=== PATIENT | male | born 1935 | race Two or more races ===

== ENCOUNTER 2024-01-06 14:11 | Emergency (ER) | payer MEDICARE, MEDICAID, SELFPAY ==
[2024-01-06 14:22] VITALS: BP 169/73; PULSE 62; RESP 16; TEMP 36.4; O2SAT 99
--- NOTE | 2024-01-06 14:30 | ED.SKABFB ---
HPI - Skin/Abscess/Foreign Bdy General Chief complaint: Extremity Problem,Nontraumatic Stated complaint: BRUISES ON FEET/DIABETIC Time Seen by Provider: 01/06/24 14:30 Source: patient Mode of arrival: ambulatory Limitations: no limitations History of Present Illness HPI narrative: 88-year-old male with history of diabetes presents with his with complaint of open wound to left. Unsure how he injured himself. thinks patient has new shoes were wrapping and cause blisters. Unsure how long open wounds have been present. 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 Patient here visiting his son, son noticed dried blood on left foot. Patient's concerned patient may get an infection. Ambulatory with steady gait. All systems reviewed and negative except as noted above. Related Data Home Medications Medication Instructions Recorded Confirmed insulin glargine 100 unit/mL (3 40 unit subcut AC 01/06/24 01/06/24 mL) subcutaneous pen (Lantus Solostar U-100 Insulin) levothyroxine 25 mcg tablet 25 mcg PO DAILY 01/06/24 01/06/24 midodrine 5 mg tablet 5 mg PO BID 01/06/24 01/06/24 Allergies Allergy/AdvReac Type Severity Reaction Status Date / Time No Known Allergies Allergy Verified 01/06/24 14:30 Review of Systems Review of Systems: CONSTITUTIONAL: Denies fever, chills, or sweats. EYES: Denies visual changes, redness, or discharge. ENT: Denies rhinorrhea, congestion, sore throat, or otalgia. CARDIOVASCULAR: Denies chest pain, palpitations, or edema. RESPIRATORY: Denies cough or dyspnea. GASTROINTESTINAL: Denies abdominal pain, nausea, vomiting, or diarrhea. GENITOURINARY: Denies dysuria or hematuria. SKIN: Denies rash or itching. Reports 2 open wounds to left foot. MUSCULOSKELETAL: Denies back pain, joint pain, or myalgia. NEUROLOGIC: Denies headache, numbness, or weakness. PSYCHIATRIC: Denies anxiety or depression. All other systems reviewed are negative, except as documented in HPI. Exam Narrative: At time of signature, agree with nursing past medical, surgical, social and family history. There is no relevant family history pertinent to the presenting complaint. Const: Other: GENERAL: This is a well-nourished, well-developed patient, in no apparent distress. HEAD: normocephalic, atraumatic. EYES: PERRL. Sclera clear/white. Vision is grossly intact. EARS: External ears normal NOSE: External nose normal NECK: Neck supple, non-tender without lymphadenopathy, masses or thyromegaly. CARDIOVASCULAR: Regular rate and rhythm without murmurs, gallops, or rubs. RESPIRATORY: Clear to auscultation. Breath sounds equal bilaterally. No wheezes, rales, or rhonchi. SKIN: warm, Dry, intact with no suspicious lesions or rash, good texture and turgor. To open, superficial wound to lateral aspect of left foot with dry blood, no active bleeding. No signs of infection. NEURO: awake, alert, and oriented to person, place and time. There were no obvious focal neurologic abnormalities. EXTREMITIES: No joint tenderness, effusion, or edema noted. Course Course Level of Care: Express Care Visit Vital Signs Vital signs: Vital Signs Temperature 36.4 C L 01/06/24 14:22 Pulse Rate 62 01/06/24 14:22 Respiratory Rate 16 01/06/24 14:22 Blood Pressure 169/73 H 01/06/24 14:22 Pulse Oximetry 99 01/06/24 14:22 Temperature 36.4 C L 01/06/24 14:22 Pulse Rate 62 01/06/24 14:22 Respiratory Rate 16 01/06/24 14:22 Blood Pressure 169/73 H 01/06/24 14:22 Pulse Oximetry 99 01/06/24 14:22 Oxygen Delivery Room Air 01/06/24 14:25 Reviewed MDM - Skin/Abscess/Foreign Bdy MDM Narrative Medical decision making narrative: Will prescribe cephalexin today as preventative for infection due to patient's history of diabetes. There are no signs of infection today. Wounds cleaned and dressed by RN. Patient is aware of diagnosis, understands and agrees to treatment plan. Anticipa
== END 2024-01-06 14:50 | disposition home or self-care (01) ==
PROVIDERS: Emergency Provider Nurse Practitioner Family
DX: S91.302A Unspecified open wound, left foot, initial encounter (principal); X58.XXXA Exposure to other specified factors, initial encounter; E11.42 Type 2 diabetes mellitus with diabetic polyneuropathy; E03.9 Hypothyroidism, unspecified; Z95.5 Presence of coronary angioplasty implant and graft
CPT/HCPCS: 99213; G0463

== ENCOUNTER 2024-02-24 09:42 | Observation (INO) | payer MEDICARE, MEDICAID, SELFPAY ==
[2024-02-24] VITALS (7 sets, daily range): BP systolic 117–155; BP diastolic 47–89; PULSE 57–69; RESP 13–19; TEMP 36.3–36.6; O2SAT 96–100
--- NOTE | ~2024-02-24 | CT_ITS ---
EXAMINATION: CT thoracic lumbar wo con DATE: 02/24/2024 12:42 INDICATION: Fall. TECHNIQUE: Computed tomography (CT) of the thoracic and lumbar spine was performed without intravenou s contrast. Automated exposure control and iterative reconstruction technique were employed. The dose -length product was 944.00 mGy-cm. COMPARISON: None FINDINGS: CT THORACIC SPINE: There is 10 degrees dextroscoliosis of thoracic spine. Vertebral body heights are normal. There is mildly decreased disc height at multiple levels. There is multilevel mild facet join t osteoarthritis in the thoracic spine. There is mild neural foraminal stenosis at [address] levels[address] No centr al canal stenosis. CT LUMBAR SPINE: Bone alignment is normal. There is a compression fracture of L3 with 2/5 loss of hei ght and a coronal cleft. There is mildly decreased disc height at L2-L3, L3-L4, and L4-L5 and severel y decreased disc height at L5-S1. The following disc levels are specifically discussed: L1-L2: The disc does not extend beyond the endplate margin. There is mild bilateral facet joint osteo arthritis. There is no neural foraminal stenosis. There is no central canal stenosis. L2-L3: The disc is bulging. There is moderate right and severe left facet joint osteoarthritis. There is mild bilateral neural foraminal stenosis. There is mild central canal stenosis. L3-L4: The disc is bulging. There is severe bilateral facet joint osteoarthritis. There is mild bilat eral neural foraminal stenosis. There is mild central canal stenosis. L4-L5: The disc is bulging. There is severe bilateral facet joint osteoarthritis. There is moderate b ilateral neural foraminal stenosis. There is mild central canal stenosis. L5-S1: The disc is bulging. There is severe bilateral facet joint osteoarthritis. There is moderate b ilateral neural foraminal stenosis. There is mild central canal stenosis. IMPRESSION: 1. Acute L3 compression fracture. 2. Mild thoracic spondylosis and severe lower lumbar spondylosis. Reviewed, dictated and finalized at location A.
--- NOTE | ~2024-02-24 | XR_ITS ---
EXAMINATION: XR chest 2V DATE: 02/24/2024 10:51 INDICATION: Weakness. TECHNIQUE: Frontal and lateral views of the chest were obtained. COMPARISON: None. FINDINGS: There is mild atelectasis in left lower lobe. No pleural effusion or pneumothorax. The hear t size is normal. Median sternotomy wires and mediastinal surgical clips are seen, likely from prior coronary artery bypass grafting. There is a chronic compression fracture of L3. IMPRESSION: 1. Mild atelectasis in left lower lobe. Reviewed, dictated and finalized at location A.
--- NOTE | ~2024-02-24 | CT_ITS ---
EXAMINATION: CT brain wo con DATE: 02/24/2024 12:42 INDICATION: Falls with related to right head and weakness TECHNIQUE: Computed tomography (CT) of the head was performed without intravenous contrast. Sagittal and coronal reconstructions were performed. The mA was adjusted according to patient size. Iterative reconstruction technique was employed. The dose-length product was 605.33 mGy-cm. COMPARISON: None FINDINGS: No fracture. No acute intracranial hemorrhage, acute infarction or abnormal extra axial fluid collect ion. Couple small lacunar infarcts in the left basal ganglia and right thalamus. There is mild to mod erate scattered white matter hypoattenuation consistent with chronic small vessel ischemic disease. S ymmetric prominence of the sulci and ventricles consistent with moderate age-appropriate diffuse cere bral volume loss. No mass/mass effect. Changes of bilateral intraocular lens replacement. Mucosal thi ckening and partial opacification of the right maxillary sinus. Mastoid air cells and middle ear cavi ties are clear. Intracranial calcified cerebral atherosclerosis is noted. IMPRESSION: 1. No fracture or acute intracranial process. 2. 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 3. Age-related changes including moderate diffuse volume loss and mild to moderate scattered white ma tter hypoattenuation consistent with chronic small vessel ischemic disease. Reviewed, dictated and finalized at location B. IMPRESSION: 1. No fracture or acute intracranial process. 2. 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 3. Age-related changes including moderate diffuse volume loss and mild to moder ate scattered white matter hypoattenuation consistent with chronic small vessel ischemic disease.
--- NOTE | 2024-02-24 09:51 | ECG_ITS ---
Test Date: 2024-02-24 09:53:26 Measurements Intervals [place] Rate: 57 P: 86 HI: 173 QRS: 86 QRSD: 126 T: 24 QT: 443 QTc: 433 Interpretive Statements SINUS BRADYCARDIA WITH SINUS ARRHYTHMIA RIGHT BUNDLE BRANCH BLOCK INFERIOR MYOCARDIAL INFARCTION , PROBABLY OLD ABNORMAL ECG No previous ECG available for comparison Electronically Signed On 02-24-2024 10:47:00 CDT by Valentin Bates D.O.
[2024-02-24 10:49] LABS: Basophils Absolute Auto 0.1 K/mm3 (0.0-0.1); Basophils Percent Auto 0.6 % (0.2-1.2); Eosinophils Absolute Auto 0.3 K/mm3 (0-0.3); Eosinophils Percent Auto 3.5 % (0-4.4); Hematocrit 42.8 % (42.0-52.0); Hemoglobin 14.3 g/dL (14.0-18.0); Immature Granulocyte Absolute 0.05 K/mm3 (0.00-0.031); Immature Granulocyte Percent A 0.5 % (0-0.5); Lymphocytes Absolute Auto 2.87 K/mm3 (0.9-3.2); Lymphocytes Percent Auto 29.6 % (18.3-44.2); Mean Corpuscular HGB Conc 33.4 g/dl (32-36); Mean Corpuscular Hemoglobin 30.4 pg (26-34); Mean Corpuscular Volume 90.9 fl (80-100); Monocytes Percent Auto 10.4 % (2.6-8.5); Neutrophils Absolute Auto 5.4 K/mm3 (1.3-6.7); Neutrophils Percent Auto 55.4 % (45.5-73.1); Platelet Count Result 260 k/mm3 (150-375); Red Blood Count 4.71 M/mm3 (4.6-6.20); White Blood Count 9.7 K/mm3 (4.5-10.0)
[2024-02-24 11:00] LABS: Alanine Aminotransferase 20 U/L (6-50); Alkaline Phosphatase 81 U/L (38-126); Anion Gap 6 mmol/L (4-12); Aspartate Amino Transferase 24 U/L (17-59); Bilirubin,Total 0.4 mg/dL (0.2-1.3); Blood Urea Nitrogen 27 mg/dL (9-20); Calcium 8.6 mg/dL (8.4-10.2); Carbon Dioxide 28 mmol/L (22-30); Chloride 104 mmol/L (98-107); Estimated CRCL calculation 24 ml/min; Estimated Glomerular Filt Rate 44; Glucose 90 mg/dL (65-110); Potassium 4.5 mmol/L (3.4-5.0); Sodium 138 mmol/L (137-145)
--- NOTE | 2024-02-24 13:01 | ED.GENADULT ---
HPI - General Adult General Chief complaint: Weakness Stated complaint: frequent falls, weakness Time Seen by Provider: 02/24/24 12:04 History of Present Illness HPI narrative: Patient is an 89-year-old male who presents to the emergency department this afternoon accompanied by his ex- due to concern for generalized weakness and recurrent falls. states that the patient's symptoms have been getting over this for the past 6 weeks. states that they had blood work including thyroid studies and vitamins and he was placed on some thyroid hormone problem that the remainder of his blood work was fine. They attributed his weakness to his peripheral neuropathy from diabetes and recommended daily physical therapy. Patient was then placed in a long term [place] a different city approximately [address] as family alternate between here and living in a different city and states that he was released from the long term last Thursday but she feels as though he is now worse than he was when he was placed in the long term. Throughout this past week she has had a very difficult time caring for him. Patient is having a difficult time ambulating from the room to the bathroom. Once he gets to the bathroom to urinate he often misses in gets urine all over the bathroom. is now requesting that he is placed in a long-term long term facility is that she no longer can care for him. She was hoping that the 1 month at the long term with rehab / physical therapy daily would improve his condition, however, she feels as though his condition only due to your noted. She denies any additional specific symptoms or concerns. Patient is alert and oriented to person, place and situation and is answering all my questions appropriately. states that he really did not like the long term but understands that he needs a. Patient is complaining of lumbar back pain and did inform me at this time that he did fall about a week ago but was not evaluated for this. Related Data Home Medications Medication Instructions Recorded Confirmed insulin glargine 100 unit/mL (3 40 unit subcut AC 01/06/24 01/06/24 mL) subcutaneous pen (Lantus Solostar U-100 Insulin) levothyroxine 25 mcg tablet 25 mcg PO DAILY 01/06/24 01/06/24 midodrine 5 mg tablet 5 mg PO BID 01/06/24 01/06/24 Allergies Allergy/AdvReac Type Severity Reaction Status Date / Time No Known Allergies Allergy Verified 02/24/24 09:54 Review of Systems Review of Systems: All systems are reviewed and are negative unless stated otherwise in the HPI. Exam Narrative: General: Alert, awake, afebrile, in no acute distress. HEENT: PERRL, no rhinorrhea, no post nasal drip, oropharynx clear. Cardiovascular: Regular rate and rhythm, no murmurs, rubs or gallops, no peripheral edema. Respiratory: Clear to auscultation bilaterally, no tachypnea, no wheezing, no rhonchi, no rubs, no respiratory distress. Abdomen: Soft, nontender, nondistended, no rebound, no guarding, no peritoneal signs. Back: Midline lumbar spine tenderness to palpation, no step-offs or deformities. Musculoskeletal: No joint swelling or deformity, normal muscle tone. Skin: No rashes or petechia, no signs of infection. Neurological: Alert and oriented to person, place, and time. Follows all commands. No focal deficits, spontaneously moving all 4 extremity, speech is clear and fluent. Course Vital Signs Vital signs: Vital Signs Temperature 97.9 F 02/24/24 09:39 Pulse Rate 61 02/24/24 09:39 Respiratory Rate 15 02/24/24 09:39 Blood Pressure 144/85 H 02/24/24 09:39 Pulse Oximetry 100 02/24/24 09:39 Oxygen Delivery Room Air 02/24/24 09:39 Temperature 97.9 F 02/24/24 09:39 Pulse Rate 61 02/24/24 12:16 Respiratory Rate 14 02/24/24 12:16 Blood Pressure 128/80 02/24/24 12:16 Pulse Oximetry 96 02/24/24 12:16 Oxygen Delivery Room Air 02/24/24 09:39 Medical Dec
[2024-02-24 13:29] LABS: Appearance Urine Clear (Clear); Bacteria Urine None Seen /hpf; Bilirubin Urine Negative (Negative); Blood Urine Negative (Negative); Color Urine Yellow (Yellow); Glucose Urine UA Negative (Negative); Ketones Urine Negative (Negative); Leukocyte Esterase Ur Negative LEU/UL (Negative); Need Manual Microscopic Reviewed; Nitrate Urine Negative (Negative); Non Pathogenic Casts 0-2; Protein Urine Trace mg/dL (Negative); RBC Urine 0-2 /hpf (0-2); Specific Grav Ur 1.019 (1.001-1.035); Squamous Epithelial Cell Urine None Seen /hpf (Few); Urobilinogen Urine 0.2 mg/dL (<2.0); WBC Urine 0-5 /hpf (0-3); pH Urine 5.5 (5.0-9.0)
[2024-02-24 13:39] LABS: Add Urine Microscopic? NO
--- NOTE | 2024-02-24 15:25 | PC.NURSE ---
This RN called dietary and requested a dinner tray be sent to pts room 344, aware of no red meat diet per pt request.
--- NOTE | 2024-02-24 15:30 | ADMGEN ---
This patient, Yao Hidalgo, was admitted to Medical Room 344-01. Patient/family oriented to hospital policies and general routines including ID bracelet, bed and alarms, visiting hours, pain management, procedures, bathroom and other care routines, personal items, smoking policy, room service/diet, and visiting hours. Information on how to activate the Rapid Response Team has been discussed. Patient/Family are encouraged to report perceived risks to care and to ask questions if they do not understand what they are told or what they should do.
--- NOTE | 2024-02-24 16:01 | PM.IMHP ---
H&P: HPI History of Present Illness Date/Time: 02/24/24 16:01 Chief Complaint: Falls/failure to thrive Narrative: Patient is a an 89-year old male who presented initially to the ED with his ex- for frequent falls and weakness at home. The patient currently lives with his ex- and son who have been caring for him after he recently was discharged from rehab. Most information was from the medical chart and ex- because patient is poor historian. The ex- had reported to ED staff that patient weakness and falls have been getting increasingly worse for the last 6 weeks and she can longer care for him at home. Ex- reported the patient can hardly ambulate to the bathroom anymore and has been urinating on himself and the floor. Patient did have some complaints of back pain and ED physician was informed of a previous fall about a week ago that they did not seek care for. The patients labs and vitals were unremarkable, however CT spine did show an acute L3 compression fracture. Patient was admitted to the medical services for fpc placement with PT/OT and neurosurgery consult for L3 fracture. Review of Systems Review of Systems: All systems reviewed & are unremarkable except as noted in HPI and below PMFSH Social History Social History Smoking status: Never smoker Alcohol intake: never Substance use: never Do You Feel Safe in your Home?: Yes Lack of Transportation: No Lack of Food: Never True Current Housing: I Have Housing Concerned About Future Housing: No Difficulty Paying Gas/Electric Bills: No Difficulty Paying for Meds: No Currently Unemployed: No Education: Associate Degree Difficulty w/ Childcare or Family Care: No Spiritual care concerns: No Meds Home Medications and Allergies Home Medications Medication Instructions Recorded Confirmed Type insulin glargine 100 unit/mL (3 25 unit subcut HS 01/06/24 02/24/24 History mL) subcutaneous pen (Lantus Solostar U-100 Insulin) levothyroxine 25 mcg tablet 25 mcg PO DAILY 01/06/24 02/24/24 History midodrine 5 mg tablet 5 mg PO BID 01/06/24 02/24/24 History aspirin 325 mg tablet 325 mg PO DAILY 02/24/24 02/24/24 History iodine (kelp) 1 tablet PO DAILY 02/24/24 02/24/24 History multivit with minerals-iron 18 1 tablet PO DAILY 02/24/24 02/24/24 History mg-folic ac 400 mcg-vit K 25 mcg tablet (Adults Multivitamin) omega 9-seg-kss-fish oil 1,000 mg 2 cap PO DAILY 02/24/24 02/24/24 History (120 mg-180 mg) capsule (Fish Oil) Allergies Allergy/AdvReac Type Severity Reaction Status Date / Time No Known Allergies Allergy Verified 02/24/24 16:53 Vital Signs Vital Signs - 24 hr 02/24/24 09:39 02/24/24 09:51 02/24/24 10:56 Temperature 97.9 F Pulse Rate 61 57 L 59 L Respiratory Rate 15 13 Blood Pressure 144/85 H 155/83 H Pulse Oximetry 100 97 Oxygen Delivery Room Air 02/24/24 12:16 02/24/24 14:40 02/24/24 15:44 Temperature 97.7 F Pulse Rate 61 63 60 Respiratory Rate 14 14 19 Blood Pressure 128/80 150/89 H 123/60 Pulse Oximetry 96 100 100 Oxygen Delivery Exam Narrative: Physical Exam: GENERAL: Alert and oriented x 3. No acute distress. EYES: EOMI. No scleral icterus. PERRLA. HEENT: Moist mucous membranes. LUNGS: Clear to auscultation bilaterally. No accessory muscle use. CARDIOVASCULAR: Regular rate and rhythm. No murmur. No JVD. S1-S2 ABDOMEN: Soft, mild tenderness and non-distended. No palpable masses. EXTREMITIES: No edema. Non-tender SKIN: No rashes or lesions. Skin warm, dry. NEUROLOGIC: No focal neurological deficits. CN II-XII grossly intact PSYCHIATRIC: Appropriate mood and affect. Good judgement and insight. No visual or auditory hallucinations. No suicidal or homicidal ideation. H&P: Results Labs Labs: Short CBC 02/24/24 Range/Units 10:44 WBC 9.7 (4.5-10.0) K/m
[2024-02-25 05:22] LABS: Hematocrit 43.1 % (42.0-52.0); Hemoglobin 13.7 g/dL (14.0-18.0); Mean Corpuscular HGB Conc 31.8 g/dl (32-36); Mean Corpuscular Hemoglobin 30.1 pg (26-34); Mean Corpuscular Volume 94.7 fl (80-100); Mean Platelet Volume 10.3 fl (7.4-10.4); Platelet Count Result 254 k/mm3 (150-375); Red Blood Count 4.55 M/mm3 (4.6-6.20); White Blood Count 10.4 K/mm3 (4.5-10.0)
[2024-02-25 06:31] VITALS: BP 115/53; PULSE 68; RESP 18; TEMP 36.4; O2SAT 95
[2024-02-25] MEDS: PANTOPRAZOLE 40 MG TABLET PO (08:11)
[2024-02-25] MEDS: ACETAMINOPHEN 325 MG TABLET 650 MG PO (08:13)
[2024-02-25 09:11] LABS: Alanine Aminotransferase 18 U/L (6-50); Albumin Level 3.4 g/dL (3.5-5.1); Alkaline Phosphatase 77 U/L (38-126); Anion Gap 8 mmol/L (4-12); Aspartate Amino Transferase 23 U/L (17-59); Bilirubin,Total 0.5 mg/dL (0.2-1.3); Blood Urea Nitrogen 29 mg/dL (9-20); Calcium 8.7 mg/dL (8.4-10.2); Carbon Dioxide 23 mmol/L (22-30); Chloride 107 mmol/L (98-107); Estimated CRCL calculation 24 ml/min; Estimated Glomerular Filt Rate 44; Glucose 121 mg/dL (65-110); Potassium 4.5 mmol/L (3.4-5.0); Sodium 138 mmol/L (137-145)
[2024-02-25] MEDS: MULTIVITAMINS /C LUTEIN (CENTRUM SILVER) TABLET *BKC 1 TAB PO (11:08)
[2024-02-25] MEDS: MIDODRINE HCL 2.5 MG TABLET 5 MG PO ×2 (11:08→17:31)
[2024-02-25] MEDS: ASPIRIN 325 MG TABLET PO (11:08)
[2024-02-25] MEDS: OMEGA 3 POLYUNSAT FATTY ACIDS 1 GM CAP 2 GM PO (11:08)
[2024-02-25] MEDS: LEVOTHYROXINE SODIUM 25 MCG TABLET PO (11:09)
--- NOTE | 2024-02-25 13:59 | PM.IMPN ---
Progress Note: A&P Assessment and Plan (1) Closed compression fracture of L3 vertebra: Code(s): S32.030A - Wedge compression fracture of third lumbar vertebra, initial encounter for closed fracture Status: Acute (2) Adult failure to thrive: Code(s): R62.7 - Adult failure to thrive Status: Acute (3) Generalized weakness: Code(s): R53.1 - Weakness Status: Acute (4) Hypothyroidism: Code(s): E03.9 - Hypothyroidism, unspecified Status: Acute (5) Diabetes: Code(s): E11.9 - Type 2 diabetes mellitus without complications Status: Acute Plan Generalized weakness/Adult failure to thrive deconditioned per unable to care for him recent rehab stay L3 lumbar fracture CC consulted for NH placement L3 fracture NSAIDS pain control Neurosurgery phone consult LSO brace ordered F/U outpatient with PCP PT/OT weight bearing per neuro monitor neurovascular Diabetes Accu-Cheks a.c. HS sliding scale insulin resume patient's home long-acting Diabetic diet Optimize Keaton inhibitors and statins. Watch for hypoglycemia/hypoglycemic protocol ordered Hypothyroidism Resumed home levothyroxine TSH pending Code status: Full code per patient DVT prophylaxis: Lovenox Stress ulcer prophylaxis: Protonix 40 daily PT/OT notes: PT/OT pending Disposition: Patient admitted due to failure to thrive unable to care for patient does have acute L3 fracture LSO brace ordered CC working on placement. Time Spent With Patient Time with patient: 15 - 25 minutes Subjective Date/time seen: 02/25/24 13:59 Interval history: Falls/failure to thrive Narrative: Patient is a an 89-year old male who presented initially to the ED with his ex- for frequent falls and weakness at home. The patient currently lives with his ex- and son who have been caring for him after he recently was discharged from rehab. Most information was from the medical chart and ex- because patient is poor historian. The ex- had reported to ED staff that patient weakness and falls have been getting increasingly worse for the last 6 weeks and she can longer care for him at home. Ex- reported the patient can hardly ambulate to the bathroom anymore and has been urinating on himself and the floor. Patient did have some complaints of back pain and ED physician was informed of a previous fall about a week ago that they did not seek care for. The patients labs and vitals were unremarkable, however CT spine did show an acute L3 compression fracture. Patient was admitted to the medical services for [facility] with PT/OT and neurosurgery consult for L3 fracture. 02/25/2024: Patient comfortable but still has some mild complaints of back pain as would be expected from fracture. LSO brace ordered spoke with neurosurgery about patient L3 fracture may ambulate with brace and can follow-up PCP outpatient for improvement. Labs and vitals still unremarkable currently CC working on placement. Review of Systems Review of Systems: All systems reviewed & are unremarkable except as noted in HPI and below Exam Narrative: Physical Exam: GENERAL: Alert and oriented x 3. No acute distress. EYES: EOMI. No scleral icterus. PERRLA. HEENT: Moist mucous membranes. LUNGS: Clear to auscultation bilaterally. No accessory muscle use. CARDIOVASCULAR: Regular rate and rhythm. No murmur. No JVD. S1-S2 ABDOMEN: Soft, mild tenderness and non-distended. No palpable masses. EXTREMITIES: No edema. Non-tender SKIN: No rashes or lesions. Skin warm, dry. NEUROLOGIC: No focal neurological deficits. CN II-XII grossly intact PSYCHIATRIC: Appropriate mood and affect. Good judgement and insight. No visual or auditory hallucinations. No suicidal or homicidal ideation. Objective Data Vital Signs Vital Signs: Vital Signs - 24 hr 02/24/24 14:40
[2024-02-25 14:00] VITALS: BP 150/67; PULSE 64; RESP 18; TEMP 36.1; O2SAT 99
--- NOTE | 2024-02-25 14:47 | PCOTNOTE ---
Attempted OT evaluation, neurosurgery consult pending and waiting for brace. Will follow.
--- NOTE | 2024-02-25 18:31 | PC.NURSE ---
Patient received LSO brace from [facility].
[2024-02-25 19:44] VITALS: BP 149/69; PULSE 61; RESP 20; TEMP 36.2; O2SAT 99
[2024-02-26 05:18] VITALS: BP 146/51; PULSE 66; RESP 18; TEMP 36.2; O2SAT 100
[2024-02-26] MEDS: LEVOTHYROXINE SODIUM 25 MCG TABLET PO (05:20)
[2024-02-26 09:03] VITALS: O2SAT 99
[2024-02-26 09:30] VITALS: BP 139/59
[2024-02-26] MEDS: MULTIVITAMINS /C LUTEIN (CENTRUM SILVER) TABLET *BKC 1 TAB PO (09:30)
[2024-02-26] MEDS: ASPIRIN 325 MG TABLET PO (09:30)
[2024-02-26] MEDS: PANTOPRAZOLE 40 MG TABLET PO (09:31)
[2024-02-26] MEDS: MIDODRINE HCL 2.5 MG TABLET 5 MG PO (09:31)
[2024-02-26] MEDS: OMEGA 3 POLYUNSAT FATTY ACIDS 1 GM CAP 2 GM PO (09:31)
--- NOTE | 2024-02-26 12:46 | PM.DS ---
DS: Admitting Diagnosis Discharge Date 02/26/2024 Admitting Diagnosis Falls/failure to thrive/L3 compression fracture DS: Discharge Diagnosis Discharge Diagnosis (1) Closed compression fracture of L3 vertebra: Code(s): S32.030A - Wedge compression fracture of third lumbar vertebra, initial encounter for closed fracture Status: Acute (2) Adult failure to thrive: Code(s): R62.7 - Adult failure to thrive Status: Acute (3) Generalized weakness: Code(s): R53.1 - Weakness Status: Acute (4) Hypothyroidism: Code(s): E03.9 - Hypothyroidism, unspecified Status: Acute (5) Diabetes: Code(s): E11.9 - Type 2 diabetes mellitus without complications Status: Acute Plan Generalized weakness/Adult failure to thrive deconditioned per unable to care for him recent rehab stay L3 lumbar fracture CC consulted for NH placement L3 fracture NSAIDS pain control Neurosurgery phone consult LSO brace ordered F/U outpatient with PCP PT/OT weight bearing per neuro monitor neurovascular Diabetes Accu-Cheks a.c. HS sliding scale insulin resume patient's home long-acting Diabetic diet Optimize Keaton inhibitors and statins. Watch for hypoglycemia/hypoglycemic protocol ordered Hypothyroidism Resumed home levothyroxine TSH pending Disposition: Patient admitted due to failure to thrive unable to care for patient does have acute L3 fracture LSO brace placed and patient was discharged home with family and home health. DS: Summary Hospital Course Reason for hospitalization: Falls/failure to thrive/L3 compression fracture Hospital Course: Narrative: Patient is a an 89-year old male who presented initially to the ED with his ex- for frequent falls and weakness at home. The patient currently lives with his ex- and son who have been caring for him after he recently was discharged from rehab. Most information was from the medical chart and ex- because patient is poor historian. The ex- had reported to ED staff that patient weakness and falls have been getting increasingly worse for the last 6 weeks and she can longer care for him at home. Ex- reported the patient can hardly ambulate to the bathroom anymore and has been urinating on himself and the floor. Patient did have some complaints of back pain and ED physician was informed of a previous fall about a week ago that they did not seek care for. The patients labs and vitals were unremarkable, however CT spine did show an acute L3 compression fracture. Patient was admitted to the medical services for assisted placement with PT/OT and neurosurgery consult for L3 fracture. 02/25/2024: Patient comfortable but still has some mild complaints of back pain as would be expected from fracture. LSO brace ordered spoke with neurosurgery about patient L3 fracture may ambulate with brace and can follow-up PCP outpatient for improvement. Labs and vitals still unremarkable currently CC working on placement. 02/26/2024: DISCHARGED Patient worked with PT/OT after brace was placed they recommended home with home health patient ambulated well with brace and walker. Patient had no complaints or acute issues at time of discharge. Patient labs unremarkable and vitals stable, pain was controlled with Tylenol. Patient can follow-up with PCP regarding L3 fracture. Status at Discharge Functional status at discharge: uses cane/walker Overall status at discharge: patient is progressing back to baseline Time Spent with Patient Time attestation: Total time spent providing and/or coordinating discharge services: Time spent: Less than 30 minutes Exam Narrative: Physical Exam: GENERAL: Alert and oriented x 3. No acute distress. EYES: EOMI. No scleral icterus. PERRLA. HEENT: Moist mucous membranes. LUNGS: Clear to auscultation bilaterally. No accessory musc
--- NOTE | 2024-02-26 14:00 | PC.NURSE ---
RN called patient's family member Julianne to update her that patient was being discharged and is ready for machine pecan picker. Julianne stated she would be here at 1700 to machine pecan picker patient.
[2024-02-26 15:55] VITALS: BP 177/78; PULSE 73; RESP 19; TEMP 36.2; O2SAT 100
== END 2024-02-26 18:55 | disposition home health service (06) ==
LOC: ANHED 13:15 → ANH3MED 15:26
PROVIDERS: Emergency Medicine; Admitting Provider Family Medicine; Emergency Provider Emergency Medicine; Visit Provider Nurse Practitioner Family
DX: R62.7 Adult failure to thrive (principal); R53.1 Weakness; S32.030A Wedge compression fracture of third lumbar vertebra, initial encounter for closed fracture; W19.XXXA Unspecified fall, initial encounter; R29.6 Repeated falls; E11.42 Type 2 diabetes mellitus with diabetic polyneuropathy; E03.9 Hypothyroidism, unspecified; Z68.24 Body mass index [BMI] 24.0-24.9, adult; Z79.4 Long term (current) use of insulin
CPT/HCPCS: 36415; 70450; 71046; 72128; 72131; 80053; 81003; 84443; 85025; 85027; 93005; 97161; 97165; 99285; A9270; G0378; J1650

== ENCOUNTER 2024-03-05 13:56 | Observation (INO) | payer MEDICARE, MEDICAID, SELFPAY ==
[2024-03-05] VITALS (34 sets, daily range): BP systolic 101–154; BP diastolic 52–71; PULSE 60–74; RESP 13–23; TEMP 36.6; O2SAT 96–100; BMI 23.7
--- NOTE | ~2024-03-05 | XR_ITS ---
Lumbosacral Spine: AP and lateral views Clinical History: Pain Findings: The normal lordotic curve is maintained. Acute compression fracture with additional fibrogl andular fracture line of the L3 vertebral body is present, as seen on recent CT scan dated 02/24/2024. No other fracture identified. Minimal grade 1 anterolisthesis of L4 over L5 noted. There is mild to m oderate facet arthropathy throughout the lumbar spine. There is moderate degenerative disc narrowing at L5-S1. The sacroiliac joints are normally outlined. Impression: Acute L3 fracture, as detailed above, and also as seen on recent CT scan dated 02/24/2024. [id number] degenerative spondylosis, as above. Reviewed, dictated and finalized at location . Impression: Acute L3 fracture, as detailed above, and also as seen on recent CT scan dated 02/24/2024. [id number] degenerative spondylosis, as above.
--- NOTE | ~2024-03-05 | XR_ITS ---
Thoracic spine: Clinical Indication: Back pain AP and lateral views were performed. No fracture is seen. There is normal alignment of the vertebrae. The intervertebral disc spaces appe ar normal. Paravertebral soft tissues appear normal. Impression: No significant abnormalities noted. Reviewed, dictated and finalized at [facility]. Impression: No significant abnormalities noted.
--- NOTE | ~2024-03-05 | XR_ITS ---
Portable chest x-ray Comparison: 02/24/2024 Clinical History: Weakness, CHF Findings: There is mild haziness of the left lung base. Right lung clear. Cardiomediastinal silhoue tte is stable, status post CABG. Bones and soft tissues are unremarkable. Impression: Mild haziness left lung base, nonspecific. Correlate for pulmonary edema/atelectasis versus possibly pneumonia. Reviewed, dictated and finalized at location . Impression: Mild haziness left lung base, nonspecific. Correlate for pulmonary edema/atelec tasis versus possibly pneumonia.
--- NOTE | 2024-03-05 15:05 | ECG_ITS ---
Test Date: 2024-03-05 15:19:44 Measurements Intervals [place] Rate: 67 P: 53 TN: 98 QRS: 95 QRSD: 116 T: 92 QT: 409 QTc: 433 Interpretive Statements SINUS RHYTHM WITH SHORT TN INTERVAL RIGHT BUNDLE BRANCH BLOCK INFERIOR INFARCT, AGE INDETERMINATE BASELINE ARTIFACT- II, III, AVR, AVL, AVF ABNORMAL ECG Compared to ECG 02/24/2024 09:53:26 HEART RATE HAS INCREASED Electronically Signed On 03-05-2024 20:52:04 CDT by Valentin Bates D.O.
[2024-03-05 15:25] LABS: Basophils Absolute Auto 0.1 K/mm3 (0.0-0.1); Basophils Percent Auto 0.5 % (0.2-1.2); Eosinophils Absolute Auto 0.2 K/mm3 (0-0.3); Eosinophils Percent Auto 1.4 % (0-4.4); Hematocrit 40.5 % (42.0-52.0); Hemoglobin 13.5 g/dL (14.0-18.0); Immature Granulocyte Absolute 0.08 K/mm3 (0.00-0.031); Immature Granulocyte Percent A 0.8 % (0-0.5); Lymphocytes Absolute Auto 2.17 K/mm3 (0.9-3.2); Lymphocytes Percent Auto 20.5 % (18.3-44.2); Mean Corpuscular HGB Conc 33.3 g/dl (32-36); Mean Corpuscular Hemoglobin 30.3 pg (26-34); Mean Platelet Volume 10.2 fl (7.4-10.4); Monocytes Absolute Auto 1.1 K/mm3 (0.1-0.6); Neutrophils Absolute Auto 7.1 K/mm3 (1.3-6.7); Neutrophils Percent Auto 66.8 % (45.5-73.1); Platelet Count Result 243 k/mm3 (150-375); Red Blood Count 4.45 M/mm3 (4.6-6.20); Red Cell Distribution Width 13.1 % (11.5-14.5); White Blood Count 10.6 K/mm3 (4.5-10.0)
[2024-03-05 15:32] LABS: Alanine Aminotransferase 19 U/L (6-50); Albumin Level 3.7 g/dL (3.5-5.1); Alkaline Phosphatase 125 U/L (38-126); Anion Gap 9 mmol/L (4-12); Aspartate Amino Transferase 24 U/L (17-59); Bilirubin,Total 0.4 mg/dL (0.2-1.3); Blood Urea Nitrogen 30 mg/dL (9-20); Calcium 8.3 mg/dL (8.4-10.2); Carbon Dioxide 29 mmol/L (22-30); Chloride 97 mmol/L (98-107); Estimated CRCL calculation 24 ml/min; Estimated Glomerular Filt Rate 44; Glucose 313 mg/dL (65-110); Potassium 5.2 mmol/L (3.4-5.0); Sodium 135 mmol/L (137-145)
[2024-03-05 15:37] LABS: Prothrombin Time 13.6 Seconds (11.1-14.7)
--- NOTE | 2024-03-05 16:27 | PCCCNOTE ---
Referral received from ER provider requesting placement for pt. Pt was here and discharged about 1 week ago. He was discharged home with ex and son. He also was given a brace and set up with [facility]. Spoke with pt and he doesn't want to have to consider going to rehab. He was given a list of facilities that accept his insurance. Call placed to ex spouse May. She states pt has fallen at home and she can't take care of him without him going to a facility and receiving rehab first. She requests list of facilities be emailed to son @ [email or web address]. Informed provider that pt will need PT/OT evals and insurance auth to go to facility. May states home health did not come out to see pt this week. Call placed to [facility] and no answer at call extension and no way to leave message. May will bring pt's brace with her when she comes this evening.
--- NOTE | 2024-03-05 17:31 | PC.NURSE ---
called patient's ex- for discharge, she is refusing to take him home. states that she can not take care of him. patient and provider aware. will be admitted for NH placement
--- NOTE | 2024-03-05 17:45 | ED.GENADULT ---
HPI - General Adult General Chief complaint: Weakness Stated complaint: glf, weakness Time Seen by Provider: 03/05/24 14:51 Source: patient Mode of arrival: EMS Limitations: no limitations History of Present Illness HPI narrative: 89-year-old with a history of L3 compression fracture, failure to thrive was brought in from home with the complaints of marked weakness. Patient was discharged from the hospital due. He denies any chest pain or shortness of breath, no history of fever or chills . Onset (ago): unknown Severity: moderate Relieving factors: none Exacerbating factors: none Associated symptoms: denies other symptoms Related Data Home Medications Medication Instructions Recorded Confirmed insulin glargine 100 unit/mL (3 25 unit subcut HS 01/06/24 02/24/24 mL) subcutaneous pen (Lantus Solostar U-100 Insulin) levothyroxine 25 mcg tablet 25 mcg PO DAILY 01/06/24 02/24/24 midodrine 5 mg tablet 5 mg PO BID 01/06/24 02/24/24 aspirin 325 mg tablet 325 mg PO DAILY 02/24/24 02/24/24 iodine (kelp) 1 tablet PO DAILY 02/24/24 02/24/24 multivit with minerals-iron 18 1 tablet PO DAILY 02/24/24 02/24/24 mg-folic ac 400 mcg-vit K 25 mcg tablet (Adults Multivitamin) omega 0-lab-mgw-fish oil 1,000 mg 2 cap PO DAILY 02/24/24 02/24/24 (120 mg-180 mg) capsule (Fish Oil) Allergies Allergy/AdvReac Type Severity Reaction Status Date / Time No Known Allergies Allergy Verified 03/05/24 14:05 Review of Systems Review of Systems: All systems reviewed & are unremarkable except as noted in HPI and below Constitutional: Constitutional: Reports no additional constitutional complaints Eyes: Eyes: Reports no additional eye complaints ENT: Reports system reviewed and no additional complaints, except as documented Cardiovascular: Cardiovascular: Reports no additional cardiovascular complaints Respiratory: Respiratory: Reports no additional respiratory complaints Gastrointestinal: Gastrointestinal: Reports no additional gastrointestinal complaints Musculoskeletal: Musculoskeletal: Reports no additional musculoskeletal complaints Neurologic: Reports system reviewed and no additional complaints, except as documented Psychiatric: Psychiatric: Reports no additional psychiatric complaints PMFSH Social History Social History Smoking status: Never smoker Alcohol intake: never Substance use: never Do You Feel Safe in your Home?: Yes Lack of Transportation: No Lack of Food: Never True Current Housing: I Have Housing Concerned About Future Housing: No Difficulty Paying Gas/Electric Bills: No Difficulty Paying for Meds: No Currently Unemployed: No Education: Associate Degree Difficulty w/ Childcare or Family Care: No Spiritual care concerns: No Course Course Emergency Course: Notified patient about his lab work. He declined to go to a long term for rehab however we did contact his , she is unable to take care of him wants him to be placed. Vital Signs Vital signs: Vital Signs Temperature 36.6 C 03/05/24 13:56 Pulse Rate 74 03/05/24 13:56 Respiratory Rate 15 03/05/24 13:56 Blood Pressure 121/58 L 03/05/24 13:56 Pulse Oximetry 100 03/05/24 13:56 Oxygen Delivery Room Air 03/05/24 13:56 Temperature 36.6 C 03/05/24 13:56 Pulse Rate 68 03/05/24 17:31 Respiratory Rate 23 H 03/05/24 17:31 Blood Pressure 140/68 03/05/24 17:31 Pulse Oximetry 100 03/05/24 17:31 Oxygen Delivery Room Air 03/05/24 13:56 Medical Decision Making Differential Diagnosis Differential Diagnosis: Physical deconditioning, dehydration, Vital Signs Vital Signs: Vital Signs Temperature 36.6 C 03/05/24 13:56 Pulse Rate 74 03/05/24 13:56 Respiratory Rate 15 03/05/24 13:56 Blood Pressure 121/58 L 03/05/24 13:56 Pulse Oximetry 100 03/05/24 13:56 Oxygen Delivery Room Air 03/05/24 13:56 Tem
[2024-03-05 18:21] LABS: Appearance Urine Clear (Clear); Bacteria Urine None Seen /hpf; Bilirubin Urine Negative (Negative); Blood Urine Negative (Negative); Color Urine Dark Yellow (Yellow); Glucose Urine UA 2+ mg/dL (Negative); Ketones Urine Negative (Negative); Leukocyte Esterase Ur 2+ LEU/UL (Negative); Need Manual Microscopic Reviewed; Nitrate Urine Negative (Negative); Protein Urine Trace mg/dL (Negative); RBC Urine 0-2 /hpf (0-2); Specific Grav Ur 1.016 (1.001-1.035); Squamous Epithelial Cell Urine None Seen /hpf (Few); Urobilinogen Urine 0.2 mg/dL (<2.0); pH Urine 5.5 (5.0-9.0)
--- NOTE | 2024-03-05 18:23 | PC.NURSE ---
patient's ex- in room stating that she will not take him home and he will have to go to rehab. he is not my responsibility anymore and he has been taking advantage of me . I advised patient's ex- that I understand and that is something that needs to be further discussed upon the family.
[2024-03-05 18:54] LABS: Add Urine Microscopic? YES
--- NOTE | 2024-03-05 19:10 | PM.IMHP ---
H&P: HPI History of Present Illness Date/Time: 03/05/24 19:10 Chief Complaint: Fall. Narrative: This is a pleasant 89-year-old male with history of coronary artery disease, insulin-dependent diabetes, chronic kidney disease, and hypothyroidism who presented to the emergency department via EMS from home for evaluation after a fall. The patient provides the following history. He was admitted to the hospital about 10 days ago through the ED with an acute L3 compression fracture following a fall. LSO brace was ordered at the recommendation of the neurosurgeon on-call. He worked with physical therapy and they felt he did well enough that he could be discharged home with home health and ongoing therapy. Unfortunately he continues to have issues with falls and generalized weakness. This morning he was ambulating with his walker when he lost his balance on a slippery for and landed on his bottom and back. There was no head trauma or loss of consciousness and he denies that he sustained any significant injuries however he complains of worsening back pain. His ex- and son do not feel they can care for him safely at home any longer and he is being admitted for therapy and probable correction placement. At the time of my evaluation he does not have any specific complaints but he voices that he does not want to go to skilled nursing. He denies syncope, near syncope, chest pain, pleuritic pain, shortness of breath, vomiting, diarrhea, dysuria, urinary retention, bowel incontinence, and saddle anesthesia. Review of Systems Review of Systems: 12 systems were reviewed and are negative except for as per HPI. [facility] Past Medical History Medical History (Updated 03/05/24 @ 20:42 by Renata Manriquez PA-C) Chronic kidney disease, stage 3 Coronary artery disease Diabetic peripheral neuropathy Hypothyroidism Insulin dependent type 2 diabetes mellitus Surgical History Surgical History (Updated 03/05/24 @ 19:23 by Renata Manriquez PA-C) History of coronary artery bypass graft x 3 (2007) Family History Family History (Updated 03/05/24 @ 19:23 by Renata Manriquez PA-C) Other Family history non-contributory Social History Social History (Updated 03/05/24 @ 20:35 by Renata Manriquez PA-C) Social History: Surrogate medical decision maker: Julianne Hidalgo, ex-spouse. Code status: Full code. Smoking status: Never smoker Second hand tobacco smoke exposure: No Alcohol intake: never Substance use: never Do You Feel Safe in your Home?: Yes Lack of Transportation: No Lack of Food: Never True Current Housing: I Have Housing Concerned About Future Housing: No Difficulty Paying Gas/Electric Bills: No Difficulty Paying for Meds: No Currently Unemployed: No Education: Master's Degree or Higher Difficulty w/ Childcare or Family Care: No Occupation/Education: retired Additional occupation/education comments: Retired from working in [employer]. Spiritual care concerns: No Meds Home Medications and Allergies Home Medications Medication Instructions Recorded Confirmed Type insulin glargine 100 unit/mL (3 25 unit subcut HS 01/06/24 03/05/24 History mL) subcutaneous pen (Lantus Solostar U-100 Insulin) levothyroxine 25 mcg tablet 25 mcg PO DAILY 01/06/24 03/05/24 History midodrine 5 mg tablet 5 mg PO BID 01/06/24 03/05/24 History aspirin 325 mg tablet 325 mg PO DAILY 02/24/24 03/05/24 History iodine (kelp) 1 tablet PO DAILY 02/24/24 03/05/24 History multivit with minerals-iron 18 1 tablet PO DAILY 02/24/24 03/05/24 History mg-folic ac 400 mcg-vit K 25 mcg tablet (Adults Multivitamin) omega 3-fdr-oaj-fish oil 1,000 mg 2 cap PO DAILY 02/24/24 03/05/24 History (120 mg-180 mg) capsule (Fish Oil) Allergies Allergy/AdvReac Type Severity Reaction Status Date / Time No Known Allergies Allergy Verified 03/05/24 14:05 Vital Signs Vital Signs - 24 hr 03/05/24 13:56 03/05/24 14:10 02/21
--- NOTE | 2024-03-05 19:37 | ADMGEN ---
This patient, Yao Hidalgo, was admitted to [facility] Surg Room 330-02. Patient/family oriented to hospital policies and general routines including ID bracelet, bed and alarms, visiting hours, pain management, procedures, bathroom and other care routines, personal items, smoking policy, room service/diet, and visiting hours. Information on how to activate the Rapid Response Team has been discussed. Patient/Family are encouraged to report perceived risks to care and to ask questions if they do not understand what they are told or what they should do.
[2024-03-05 21:07] LABS: Hemoglobin A1C 8.9 % (<5.7)
[2024-03-05] MEDS: SODIUM CHLORIDE 0.9% IV 1,000 ML 999 ML IV CONT (21:21)
[2024-03-05] MEDS: traMADol HCL (*CRX) 25 MG TABLET PO (21:22)
--- NOTE | 2024-03-05 21:31 | PC.NURSE ---
Pt refusing blood sugar checks and insulin at this time. Renata Manriquez notified.
--- NOTE | 2024-03-05 22:25 | PC.NURSE ---
Spoke with pt's ex- extensively after pt's admission. She is very concerned about his numerous falls at her house, and would like him to go to rehab. She states, I can't take him back to my house again because I have to keep calling 911 to pick him up. I am worried he will get hurt badly . She also stated, every time he gets evaluated for rehab, he gets denied because he does well in front of therapy and then comes home and falls again . She stated, I will not take him back until he goes to rehab . She is also concerned about him refusing to eat and generally declining. Pt has refused his blood sugar checks and lab work so far this shift. Pt has been educated on the importance of both, and continues to refuse.
[2024-03-06] VITALS (10 sets, daily range): BP systolic 100–149; BP diastolic 41–72; PULSE 59–102; RESP 16–20; TEMP 36–36.3; O2SAT 94–100
[2024-03-06] MEDS: LEVOTHYROXINE SODIUM 25 MCG TABLET PO (05:34)
[2024-03-06] MEDS: traMADol HCL (*CRX) 25 MG TABLET PO (05:34)
[2024-03-06 07:51] LABS: Glucose Point of Care 243 mg/dl (65-105)
[2024-03-06] MEDS: ASPIRIN 325 MG TABLET PO (08:51)
[2024-03-06] MEDS: MULTIVITAMINS /C LUTEIN (CENTRUM SILVER) TABLET *BKC 1 TAB PO (08:51)
[2024-03-06] MEDS: OMEGA 3 POLYUNSAT FATTY ACIDS 1 GM CAP 2 GM PO (08:51)
--- NOTE | 2024-03-06 08:57 | PC.NURSE ---
patient refusing to receive sliding scale insulin this morning as his blood sugar is 243. The lubricator granulator RN reported that patient refused this morning's labs as well as a skin assessment. This RN educated patient about importance of insulin with elevated blood sugars; patient continued to refuse. Will notify provider.
--- NOTE | 2024-03-06 09:20 | PC.NURSE ---
provider notified of this morning's medication and lab refusal at 0915 03/16/23.
--- NOTE | 2024-03-06 10:00 | PM.IMPN ---
Progress Note: A&P Assessment and Plan (1) Physical deconditioning: Code(s): R53.81 - Other malaise Status: Acute Assessment and Plan: 03/06/24: Patient was recently seen and discharged previously with similar complaints and seen PT and OT in which at that time he felt strong enough to go home. He was discharged home and then sustained another fall. History of multiple falls PT and OT ordered Case coordination following for outpatient rehab needs (2) Frequent falls: Code(s): R29.6 - Repeated falls Status: Acute Assessment and Plan: See above plan of care (3) Hyperkalemia: Code(s): E87.5 - Hyperkalemia Status: Acute Assessment and Plan: 03/06/24: Initial potassium 5.2 Will recheck labs today (4) Chronic kidney disease, stage 3: Code(s): N18.30 - Chronic kidney disease, stage 3 unspecified Status: Acute Assessment and Plan: 03/06/24: Patient appears to be at his baseline creatinine of 1.5 Continue to trend (5) Abnormal urinalysis: Code(s): R82.90 - Unspecified abnormal findings in urine Status: Acute Assessment and Plan: 03/06/24: UA showed 2+ urine glucose, 2+ leukocyte, 11-20 urine WBC. Urine culture is pending No antibiotics were given at this time (6) Insulin dependent type 2 diabetes mellitus: Code(s): E11.9 - Type 2 diabetes mellitus without complications; Z79.4 - bar back (current) use of insulin Status: Acute Assessment and Plan: 03/06/24: Blood sugars ranging 243-313 Hemoglobin A1c 8.9 Accu-Cheks AC and HS Moderate dose sliding scale insulin ordered Lantus 25 units subQ at bedtime Hypoglycemic protocol in place Patient changed from regular diet to diabetic diet today (7) Hypothyroidism: Code(s): E03.9 - Hypothyroidism, unspecified Status: Acute Assessment and Plan: 03/06/24: Continue Synthroid Time Spent With Patient Time with patient: Greater than 35 minutes Subjective Date/time seen: 03/06/24 10:00 Interval history: Interval history: This is an 89-year-old male who presented to the hospital on 03/05/2024 for evaluation after a fall. He was admitted to the hospital about 10 days ago and was found to have L3 compression fracture following fall and was recommended to wear an LSO brace. He regionally went home after working with PT and OT in which she was feeling much better however he continued to have falls and weakness bringing him back for evaluation. Workup in the hospital included a chest x-ray which showed mild haziness in the left lung base. Initial labs showed a white blood cell count of 10.6, hemoglobin 13 point, sodium 135, potassium 5.2, chloride 97, creatinine 1, EGFR 44, blood sugars ranging 243-313, hemoglobin A1c 8.9. UA was obtained which showed 2+ urine glucose, 2+ leukocytes, 11-20 urine WBC. Urine culture was obtained and is pending. EKG shown sinus rhythm with right bundle branch block with a rate of 67, QTC 433. While in the ED patient received Lovenox and 1 L of IV fluids. PT and OT were ordered to evaluate treat today. Case coordination following for potential rehab needs. 03/06/24: Patient denies any fever, chills nausea and vomiting, diarrhea, abdominal pain, chest pain, shortness a breath. Asked nursing to have repeat labs drawn. Nursing noted that he was refusing his insulin and would not allow for nursing to check his blood sugars. Review of Systems Review of Systems: All systems reviewed & are unremarkable except as noted in HPI and below Constitutional: Constitutional: Reports as per HPI and Reports no additional constitutional complaints Eyes: Eyes: Reports as per HPI and Reports no additional eye complaints ENT: Reports system reviewed and no additional complaints, except as documented and Reports as per HPI Cardiovascular: Cardiovascular: Reports as per HPI and Reports no additional cardiovascular complaints Respir
--- NOTE | 2024-03-06 11:54 | PC.NURSE ---
patient continues to refuse care this AM; refused glucose check for lunch time, refused lunch tray upon delivery.
--- NOTE | 2024-03-06 13:46 | PC.NURSE ---
spoke with provider, Emily Berger, at 1300 regarding necessity of repeat lab draw; spoke with patient about importance of compliance with repeat lab draw, patient agreeable; have made multiple attempts to reach the boom pump operator for lab draw with no answer; will call boom pump operator again.
--- NOTE | 2024-03-06 14:41 | PC.NURSE ---
smelter operator notified of repeat lab draw needed at 1400, orders re-entered.
[2024-03-06 15:07] LABS: Mean Corpuscular HGB Conc 32.5 g/dl (32-36); Mean Corpuscular Hemoglobin 30.2 pg (26-34); Mean Corpuscular Volume 92.8 fl (80-100); Mean Platelet Volume 9.9 fl (7.4-10.4); Platelet Count Result 212 k/mm3 (150-375); Red Blood Count 4.31 M/mm3 (4.6-6.20); Red Cell Distribution Width 13.1 % (11.5-14.5); White Blood Count 8.8 K/mm3 (4.5-10.0)
[2024-03-06 15:21] LABS: Anion Gap 8 mmol/L (4-12); Blood Urea Nitrogen 26 mg/dL (9-20); Calcium 8.5 mg/dL (8.4-10.2); Carbon Dioxide 27 mmol/L (22-30); Chloride 99 mmol/L (98-107); Estimated CRCL calculation 28 ml/min; Estimated Glomerular Filt Rate 52; Glucose 217 mg/dL (65-110); Magnesium 2.1 mg/dL (1.6-2.3); Potassium 4.4 mmol/L (3.4-5.0); Sodium 134 mmol/L (137-145)
--- NOTE | 2024-03-06 17:37 | PC.NURSE ---
This RN and SNT, Mayank, have made a total 3 attempts this evening to obtain blood glucose check; patient continues to refuse. Patient is eating dinner from a diabetic diet, as he did not eat lunch today. Patient was agreeable to repeat lab draw, glucose level 217 with labs at 1500.
[2024-03-06] MEDS: MIDODRINE HCL 2.5 MG TABLET 5 MG PO (18:05)
--- NOTE | 2024-03-06 20:17 | PC.NURSE ---
Pt continues to refuse blood sugar checks and becomes agitated when staff tries to educate him on the importance of having his sugar checked.
[2024-03-07] VITALS: BP 149/80; PULSE 72; RESP 16; TEMP 36.3; O2SAT 100
[2024-03-07 04:00] VITALS: BP 145/74; PULSE 78; RESP 16; TEMP 36.3; O2SAT 100
[2024-03-07] MEDS: traMADol HCL (*CRX) 25 MG TABLET PO (04:25)
[2024-03-07] MEDS: LEVOTHYROXINE SODIUM 25 MCG TABLET PO (05:36)
[2024-03-07 08:00] VITALS: BP 193/82; PULSE 71; RESP 16; TEMP 36.2; O2SAT 100
--- NOTE | 2024-03-07 08:25 | P.PNIM_ITS ---
Progress Note: A&P Assessment and Plan (1) Physical deconditioning: Code(s): R53.81 - Other malaise Status: Acute Assessment and Plan: 03/06/24: * Patient was recently seen and discharged previously with similar complaints and seen PT and OT in which at that time he felt strong enough to go home. He was discharged home and then sustained another fall. * History of multiple falls * PT and OT ordered * Case coordination following for outpatient rehab needs 03/07/24: * no change (2) Frequent falls: Code(s): R29.6 - Repeated falls Status: Acute Assessment and Plan: See above plan of care (3) Hyperkalemia: Code(s): E87.5 - Hyperkalemia Status: Acute Assessment and Plan: 03/06/24: * Initial potassium 5.2 * Will recheck labs today 03/07/24: * BMP PENDING, patient currently refusing lab draw (4) Chronic kidney disease, stage 3: Code(s): N18.30 - Chronic kidney disease, stage 3 unspecified Status: Acute Assessment and Plan: 03/06/24: * Patient appears to be at his baseline creatinine of 1.5 * Continue to trend 03/07/24: * BMP PENDING, patient currently refusing lab draw (5) Abnormal urinalysis: Code(s): R82.90 - Unspecified abnormal findings in urine Status: Resolved Assessment and Plan: 03/06/24: * UA showed 2+ urine glucose, 2+ leukocyte, 11-20 urine WBC. * Urine culture is pending * No antibiotics were given at this time 03/07/24: * UA culture negative (6) Insulin dependent type 2 diabetes mellitus: Code(s): E11.9 - Type 2 diabetes mellitus without complications; Z79.4 - [facility] (current) use of insulin Status: Chronic Assessment and Plan: 03/06/24: * Blood sugars ranging 243-313 * Hemoglobin A1c 8.9 * Accu-Cheks AC and HS * Moderate dose sliding scale insulin ordered * Lantus 25 units subQ at bedtime * Hypoglycemic protocol in place * Patient changed from regular diet to diabetic diet today 03/07/24: * Blood sugars ranging 243-313 * Hemoglobin A1c 8.9 * Accu-Cheks AC and HS * Moderate dose sliding scale insulin ordered * Lantus 25 units subQ at bedtime * Hypoglycemic protocol in place (7) Hypothyroidism: Code(s): E03.9 - Hypothyroidism, unspecified Status: Chronic Assessment and Plan: * Continue Synthroid Subjective Date/time seen: 03/07/24 08:25 Interval history: Interval history: This is an 89-year-old male who presented to the hospital on 03/05/2024 for evaluation after a fall. He was admitted to the hospital about 10 days ago and was found to have L3 compression fracture following fall and was recommended to wear an LSO brace. He regionally went home after working with PT and OT in which she was feeling much better however he continued to have falls and weakness bringing him back for evaluation. Workup in the hospital included a ch est x-ray which showed mild haziness in the left lung base. Initial labs showed a white blood cell count of 10.6, hemoglobin 13 point, sodium 135, potassium 5.2, chloride 97, creatinine 1, EGFR 44, blood sugars ranging 243-313, hemoglobin A1c 8.9. UA was obtained which showed 2+ urine glucose, 2+ leukocytes, 11-20 urine WBC. Urine culture was obtained and is pending. EKG shown sinus rhythm with right bundle branch block with a rate of 67, QTC 433. While in the ED patient received Lovenox and 1 L of IV fluids. PT and OT were ordered to evaluate treat today. Case coordination following for potential rehab needs. 03/07/24:
--- NOTE | 2024-03-07 08:25 | PM.IMPN ---
Progress Note: A&P Assessment and Plan (1) Physical deconditioning: Code(s): R53.81 - Other malaise Status: Acute Assessment and Plan: 03/06/24: Patient was recently seen and discharged previously with similar complaints and seen PT and OT in which at that time he felt strong enough to go home. He was discharged home and then sustained another fall. History of multiple falls PT and OT ordered Case coordination following for outpatient rehab needs 03/07/24: no change (2) Frequent falls: Code(s): R29.6 - Repeated falls Status: Acute Assessment and Plan: See above plan of care (3) Hyperkalemia: Code(s): E87.5 - Hyperkalemia Status: Acute Assessment and Plan: 03/06/24: Initial potassium 5.2 Will recheck labs today 03/07/24: BMP PENDING, patient currently refusing lab draw (4) Chronic kidney disease, stage 3: Code(s): N18.30 - Chronic kidney disease, stage 3 unspecified Status: Acute Assessment and Plan: 03/06/24: Patient appears to be at his baseline creatinine of 1.5 Continue to trend 03/07/24: BMP PENDING, patient currently refusing lab draw (5) Abnormal urinalysis: Code(s): R82.90 - Unspecified abnormal findings in urine Status: Resolved Assessment and Plan: 03/06/24: UA showed 2+ urine glucose, 2+ leukocyte, 11-20 urine WBC. Urine culture is pending No antibiotics were given at this time 03/07/24: UA culture negative (6) Insulin dependent type 2 diabetes mellitus: Code(s): E11.9 - Type 2 diabetes mellitus without complications; Z79.4 - [employer] (current) use of insulin Status: Chronic Assessment and Plan: 03/06/24: Blood sugars ranging 243-313 Hemoglobin A1c 8.9 Accu-Cheks AC and HS Moderate dose sliding scale insulin ordered Lantus 25 units subQ at bedtime Hypoglycemic protocol in place Patient changed from regular diet to diabetic diet today 03/07/24: Blood sugars ranging 243-313 Hemoglobin A1c 8.9 Accu-Cheks AC and HS Moderate dose sliding scale insulin ordered Lantus 25 units subQ at bedtime Hypoglycemic protocol in place (7) Hypothyroidism: Code(s): E03.9 - Hypothyroidism, unspecified Status: Chronic Assessment and Plan: Continue Synthroid Subjective Date/time seen: 03/07/24 08:25 Interval history: Interval history: This is an 89-year-old male who presented to the hospital on 03/05/2024 for evaluation after a fall. He was admitted to the hospital about 10 days ago and was found to have L3 compression fracture following fall and was recommended to wear an LSO brace. He regionally went home after working with PT and OT in which she was feeling much better however he continued to have falls and weakness bringing him back for evaluation. Workup in the hospital included a chest x-ray which showed mild haziness in the left lung base. Initial labs showed a white blood cell count of 10.6, hemoglobin 13 point, sodium 135, potassium 5.2, chloride 97, creatinine 1, EGFR 44, blood sugars ranging 243-313, hemoglobin A1c 8.9. UA was obtained which showed 2+ urine glucose, 2+ leukocytes, 11-20 urine WBC. Urine culture was obtained and is pending. EKG shown sinus rhythm with right bundle branch block with a rate of 67, QTC 433. While in the ED patient received Lovenox and 1 L of IV fluids. PT and OT were ordered to evaluate treat today. Case coordination following for potential rehab needs. 03/07/24: Patient lying in bed in no distress. Denies any new complaints or changes. PT/OT working with patient. Patient continues to refuse AccuCheck, insulin or repeat blood draws. CC following for possible SNF placement if patient is agreeable. Review of Systems Review of Systems: All systems reviewed & are unremarkable except as noted in HPI and below Exam Narrative: General: In no acute distress, well nourished, lying in bed Head: atraumatic
[2024-03-07] MEDS: OMEGA 3 POLYUNSAT FATTY ACIDS 1 GM CAP 2 GM PO (09:41)
[2024-03-07] MEDS: MULTIVITAMINS /C LUTEIN (CENTRUM SILVER) TABLET *BKC 1 TAB PO (09:41)
[2024-03-07] MEDS: ASPIRIN 325 MG TABLET PO (09:41)
--- NOTE | 2024-03-07 10:46 | PC.NURSE ---
Addendum entered by Ruba Segal RN 03/07/24 18:37: UPDATE: 1800 Ex-spouse at nurses station. She is again inquiring about what patient ate today. All concerns addressed and she returned to patients room. Addendum entered by Ruba Segal RN 03/07/24 13:03: UPDATE: 1303 per ex-spouse request, I called her back with the information she requested about patients meal consumption. Questions and concerns addressed and answered at this time. Original Note: Patient lying flat resting in bed. He refused therapy, labs, and beside glucose check. He got agitated when I asked him sit up to take his pills. Trio rounds with [employer] and she was made aware of his continued noncompliance. BP elevated, will monitor. IV flushed.
[2024-03-07 12:00] VITALS: BP 146/67; PULSE 72; RESP 14; TEMP 36.2; O2SAT 99
[2024-03-07 13:10] VITALS: BMI 23.9
--- NOTE | 2024-03-07 13:16 | PCPTNOTE ---
On 03/07/24, the student, [Jenise Kinsey], provided care and completed [facility] documentation on this patient. I have reviewed the student's documentation and agree with the findings.
[2024-03-07 14:18] LABS: Hematocrit 41.8 % (42.0-52.0); Hemoglobin 13.7 g/dL (14.0-18.0); Mean Corpuscular HGB Conc 32.8 g/dl (32-36); Mean Corpuscular Hemoglobin 30.4 pg (26-34); Mean Corpuscular Volume 92.7 fl (80-100); Mean Platelet Volume 10.6 fl (7.4-10.4); Platelet Count Result 211 k/mm3 (150-375); Red Blood Count 4.51 M/mm3 (4.6-6.20)
[2024-03-07 14:35] LABS: Anion Gap 10 mmol/L (4-12); Blood Urea Nitrogen 24 mg/dL (9-20); Calcium 8.6 mg/dL (8.4-10.2); Carbon Dioxide 29 mmol/L (22-30); Chloride 94 mmol/L (98-107); Estimated CRCL calculation 28 ml/min; Estimated Glomerular Filt Rate 52; Glucose 240 mg/dL (65-110); Potassium 4.9 mmol/L (3.4-5.0); Sodium 133 mmol/L (137-145)
[2024-03-07 16:00] VITALS: BP 159/61; PULSE 75; RESP 16; TEMP 36.1; O2SAT 96
[2024-03-07 20:00] VITALS: BP 137/61; PULSE 66; RESP 18; TEMP 36.8; O2SAT 100
[2024-03-08] VITALS (7 sets, daily range): BP systolic 86–176; BP diastolic 48–94; PULSE 70–103; RESP 16–18; TEMP 36–36.9; O2SAT 95–99
--- NOTE | 2024-03-08 00:21 | PC.NURSE ---
Pt has been approached multiple times by multiple staff to attempt to obtain blood glucose reading. Pt continues to refuse. Education provided and pt becomes agitated.
[2024-03-08] MEDS: LEVOTHYROXINE SODIUM 25 MCG TABLET PO (05:45)
[2024-03-08] MEDS: MIDODRINE HCL 2.5 MG TABLET 5 MG PO ×2 (07:47→16:28)
[2024-03-08] MEDS: ASPIRIN 325 MG TABLET PO (07:47)
[2024-03-08] MEDS: OMEGA 3 POLYUNSAT FATTY ACIDS 1 GM CAP 2 GM PO (07:48)
[2024-03-08] MEDS: MULTIVITAMINS /C LUTEIN (CENTRUM SILVER) TABLET *BKC 1 TAB PO (07:48)
--- NOTE | 2024-03-08 08:38 | PCPTNOTE ---
Attempted to see patient for PT, however patient refused. Patient reported he wanted to stay sleeping and wanted PT to let him sleep.
--- NOTE | 2024-03-08 12:24 | PC.NURSE ---
Emily Berger Psychiatric Aides Teacher notified of patient refusing glucose checks and was orthostatic positive while working with therapy.
--- NOTE | 2024-03-08 12:45 | PM.DS ---
DS: Admitting Diagnosis Discharge Date 03/08/24 Admitting Diagnosis Fall DS: Summary Hospital Course Hospital Course: Final diagnosis: Fall Time Spent with Patient Time attestation: Total time spent providing and/or coordinating discharge services: DS: Data Data Completed and Pending Labs on day of discharge: Labs from last 24 hours 03/07/24 13:39 WBC 10.0 RBC 4.51 L Hgb 13.7 L Hct 41.8 L MCV 92.7 MCH 30.4 MCHC 32.8 RDW 13.0 Plt Count 211 MPV 10.6 H Sodium 133 L Potassium 4.9 Chloride 94 L Carbon Dioxide 29 Anion Gap 10 BUN 24 H Creatinine 1.30 Estim Creat Clear Calc 28 Estimated GFR 52 L Glucose 240 H Calcium 8.6 Discharge Plan Discharge Consulting providers: Emily Berger Patient Disposition: SNF Activity: as tolerated Diet: as tolerated Patient Language: [place] Stand Alone Forms: General Discharge Information Follow-up/Referrals: Olive,Shelley [Other] - 1 Week Discharge Medications: Continued midodrine 5 mg tablet 5 mg PO BID levothyroxine 25 mcg tablet 25 mcg PO DAILY insulin glargine [Lantus Solostar U-100 Insulin] 100 unit/mL (3 mL) insulin pen 25 unit SUBCUT HS aspirin 325 mg Tablet 325 mg PO DAILY iodine (kelp) Tablet 1 tablet PO DAILY omega 0-aww-elk-fish oil [Fish Oil] 1,000 mg (120 mg-180 mg) Capsule 2 cap PO DAILY Adults Multivitamin 18 mg iron-400 mcg-25 mcg Tablet 1 tablet PO DAILY Date of admission: 03/06/24 07:05 Primary Care Provider: OliveShelley Admitting Provider: Julio Cesar Weir Attending physician on admission: Emily Berger Condition: Improved
--- NOTE | 2024-03-08 14:43 | P.PNIM_ITS ---
Progress Note: A&P Assessment and Plan (1) Physical deconditioning: Code(s): R53.81 - Other malaise Status: Acute Assessment and Plan: 03/06/24: * Patient was recently seen and discharged previously with similar complaints and seen PT and OT in which at that time he felt strong enough to go home. He was discharged home and then sustained another fall. * History of multiple falls * PT and OT ordered * Case coordination following for outpatient rehab needs 03/07/24: * no change 03/08/24: * No change to current treatment plan * Awaiting authorization for [facility] (2) Frequent falls: Code(s): R29.6 - Repeated falls Status: Acute Assessment and Plan: See above plan of care (3) Hyperkalemia: Code(s): E87.5 - Hyperkalemia Status: Acute Assessment and Plan: 03/06/24: * Initial potassium 5.2 * Will recheck labs today 03/07/24: * BMP PENDING, patient currently refusing lab draw 03/08/24: * Patient refusing lab draws however his potassium did come back down on labs on the (4) Chronic kidney disease, stage 3: Code(s): N18.30 - Chronic kidney disease, stage 3 unspecified Status: Acute Assessment and Plan: 03/06/24: * Patient appears to be at his baseline creatinine of 1.5 * Continue to trend 03/07/24: * BMP PENDING, patient currently refusing lab draw 03/08/24: * No change to current treatment plan (5) Abnormal urinalysis: Code(s): R82.90 - Unspecified abnormal findings in urine Status: Resolved Assessment and Plan: 03/06/24: * UA showed 2+ urine glucose, 2+ leukocyte, 11-20 urine WBC. * Urine culture is pending * No antibiotics were given at this time 03/07/24: * UA culture negative 03/08/24: * No change to current treatment plan (6) Insulin dependent type 2 diabetes mellitus: Code(s): E11.9 - Type 2 diabetes mellitus without complications; Z79.4 - half-way (current) use of insulin Status: Chronic Assessment and Plan: 03/06/24: * Blood sugars ranging 243-313 * Hemoglobin A1c 8.9 * Accu-Cheks AC and HS * Moderate dose sliding scale insulin ordered * Lantus 25 units subQ at bedtime * Hypoglycemic protocol in place * Patient changed from regular diet to diabetic diet today 03/07/24: * Blood sugars ranging 243-313 * Hemoglobin A1c 8.9 * Accu-Cheks AC and HS * Moderate dose sliding scale insulin ordered * Lantus 25 units subQ at bedtime * Hypoglycemic protocol in place 03/08/24: * Patient refusing Accu-Cheks (7) Hypothyroidism: Code(s): E03.9 - Hypothyroidism, unspecified Status: Chronic Assessment and Plan: 03/06/24: * Continue Synthroid 03/08/24: * No change to current treatment plan Time Spent With Patient Time with patient: 25 - 35 minutes Subjective Date/time seen: 03/08/24 14:43 Interval history: Interval history: This is an 89-year-old male who presented to the hospital on 03/05/2024 for evaluation after a fall. He was admitted to the hospital about 10 days ago and was found to have L3 compression fracture following fall and was recommended to wear an LSO brace. He regionally went home after working with PT and OT in which she was feeling much better however he continued to have falls and weakness bringing him back for evaluation. Workup in the hospital included a chest x-ray which showed mild haziness in the left lung base. Initial labs showed a white blood cell count of 10.6,
--- NOTE | 2024-03-08 14:43 | PM.IMPN ---
Progress Note: A&P Assessment and Plan (1) Physical deconditioning: Code(s): R53.81 - Other malaise Status: Acute Assessment and Plan: 03/06/24: Patient was recently seen and discharged previously with similar complaints and seen PT and OT in which at that time he felt strong enough to go home. He was discharged home and then sustained another fall. History of multiple falls PT and OT ordered Case coordination following for outpatient rehab needs 03/07/24: no change 03/08/24: No change to current treatment plan Awaiting authorization for [facility] (2) Frequent falls: Code(s): R29.6 - Repeated falls Status: Acute Assessment and Plan: See above plan of care (3) Hyperkalemia: Code(s): E87.5 - Hyperkalemia Status: Acute Assessment and Plan: 03/06/24: Initial potassium 5.2 Will recheck labs today 03/07/24: BMP PENDING, patient currently refusing lab draw 03/08/24: Patient refusing lab draws however his potassium did come back down on labs on the (4) Chronic kidney disease, stage 3: Code(s): N18.30 - Chronic kidney disease, stage 3 unspecified Status: Acute Assessment and Plan: 03/06/24: Patient appears to be at his baseline creatinine of 1.5 Continue to trend 03/07/24: BMP PENDING, patient currently refusing lab draw 03/08/24: No change to current treatment plan (5) Abnormal urinalysis: Code(s): R82.90 - Unspecified abnormal findings in urine Status: Resolved Assessment and Plan: 03/06/24: UA showed 2+ urine glucose, 2+ leukocyte, 11-20 urine WBC. Urine culture is pending No antibiotics were given at this time 03/07/24: UA culture negative 03/08/24: No change to current treatment plan (6) Insulin dependent type 2 diabetes mellitus: Code(s): E11.9 - Type 2 diabetes mellitus without complications; Z79.4 - [facility] (current) use of insulin Status: Chronic Assessment and Plan: 03/06/24: Blood sugars ranging 243-313 Hemoglobin A1c 8.9 Accu-Cheks AC and HS Moderate dose sliding scale insulin ordered Lantus 25 units subQ at bedtime Hypoglycemic protocol in place Patient changed from regular diet to diabetic diet today 03/07/24: Blood sugars ranging 243-313 Hemoglobin A1c 8.9 Accu-Cheks AC and HS Moderate dose sliding scale insulin ordered Lantus 25 units subQ at bedtime Hypoglycemic protocol in place 03/08/24: Patient refusing Accu-Cheks (7) Hypothyroidism: Code(s): E03.9 - Hypothyroidism, unspecified Status: Chronic Assessment and Plan: 03/06/24: Continue Synthroid 03/08/24: No change to current treatment plan Time Spent With Patient Time with patient: 25 - 35 minutes Subjective Date/time seen: 03/08/24 14:43 Interval history: Interval history: This is an 89-year-old male who presented to the hospital on 03/05/2024 for evaluation after a fall. He was admitted to the hospital about 10 days ago and was found to have L3 compression fracture following fall and was recommended to wear an LSO brace. He regionally went home after working with PT and OT in which she was feeling much better however he continued to have falls and weakness bringing him back for evaluation. Workup in the hospital included a chest x-ray which showed mild haziness in the left lung base. Initial labs showed a white blood cell count of 10.6, hemoglobin 13 point, sodium 135, potassium 5.2, chloride 97, creatinine 1, EGFR 44, blood sugars ranging 243-313, hemoglobin A1c 8.9. UA was obtained which showed 2+ urine glucose, 2+ leukocytes, 11-20 urine WBC. Urine culture was obtained and is pending. EKG shown sinus rhythm with right bundle branch block with a rate of 67, QTC 433. While in the ED patient received Lovenox and 1 L of IV fluids. PT and OT were ordered to evaluate treat today. Case coordination following for potential rehab needs. 03/07/24:
[2024-03-09] VITALS (8 sets, daily range): BP systolic 75–166; BP diastolic 44–76; PULSE 60–74; RESP 16–18; TEMP 36.1–36.8; O2SAT 98–100
[2024-03-09] MEDS: OMEGA 3 POLYUNSAT FATTY ACIDS 1 GM CAP 2 GM PO (08:09)
[2024-03-09] MEDS: MIDODRINE HCL 2.5 MG TABLET 5 MG PO ×2 (08:09→16:35)
[2024-03-09] MEDS: MULTIVITAMINS /C LUTEIN (CENTRUM SILVER) TABLET *BKC 1 TAB PO (08:09)
[2024-03-09] MEDS: ASPIRIN 325 MG TABLET PO (08:09)
--- NOTE | 2024-03-09 16:03 | P.PNIM_ITS ---
Progress Note: A&P Assessment and Plan (1) Physical deconditioning: Code(s): R53.81 - Other malaise Status: Acute Assessment and Plan: 03/06/24: * Patient was recently seen and discharged previously with similar complaints and seen PT and OT in which at that time he felt strong enough to go home. He was discharged home and then sustained another fall. * History of multiple falls * PT and OT ordered * Case coordination following for outpatient rehab needs 03/07/24: * no change 03/08/24: * No change to current treatment plan * Awaiting authorization for [facility] 03/09/24: * No change to current treatment plan * Still awaiting authorization for [facility] (2) Frequent falls: Code(s): R29.6 - Repeated falls Status: Acute Assessment and Plan: See above plan of care (3) Hyperkalemia: Code(s): E87.5 - Hyperkalemia Status: Acute Assessment and Plan: 03/06/24: * Initial potassium 5.2 * Will recheck labs today 03/07/24: * BMP PENDING, patient currently refusing lab draw 03/08/24: * Patient refusing lab draws however his potassium did come back down on labs on the 03/09/24: * No change (4) Chronic kidney disease, stage 3: Code(s): N18.30 - Chronic kidney disease, stage 3 unspecified Status: Acute Assessment and Plan: 03/06/24: * Patient appears to be at his baseline creatinine of 1.5 * Continue to trend 03/07/24: * BMP PENDING, patient currently refusing lab draw 03/08/24: * No change to current treatment plan (5) Abnormal urinalysis: Code(s): R82.90 - Unspecified abnormal findings in urine Status: Resolved Assessment and Plan: 03/06/24: * UA showed 2+ urine glucose, 2+ leukocyte, 11-20 urine WBC. * Urine culture is pending * No antibiotics were given at this time 03/07/24: * UA culture negative 03/08/24: * No change to current treatment plan (6) Insulin dependent type 2 diabetes mellitus: Code(s): E11.9 - Type 2 diabetes mellitus without complications; Z79.4 - assisted (current) use of insulin Status: Chronic Assessment and Plan: 03/06/24: * Blood sugars ranging 243-313 * Hemoglobin A1c 8.9 * Accu-Cheks AC and HS * Moderate dose sliding scale insulin ordered * Lantus 25 units subQ at bedtime * Hypoglycemic protocol in place * Patient changed from regular diet to diabetic diet today 03/07/24: * Blood sugars ranging 243-313 * Hemoglobin A1c 8.9 * Accu-Cheks AC and HS * Moderate dose sliding scale insulin ordered * Lantus 25 units subQ at bedtime * Hypoglycemic protocol in place 03/08/24: * Patient refusing Accu-Cheks 03/09/24: * No change to current treatment plan (7) Hypothyroidism: Code(s): E03.9 - Hypothyroidism, unspecified Status: Chronic Assessment and Plan: 03/06/24: * Continue Synthroid 03/08/24: * No change to current treatment plan Time Spent With Patient Time with patient: 25 - 35 minutes Subjective Date/time seen: 03/09/24 16:03 Interval history: Interval history: This is an 89-year-old male who presented to the hospital on 03/05/2024 for evaluation after a fall. He was admitted to the hospital about 10 days ago and was found to have L3 compression fracture following fall and was recommended to wear an LSO brace. He regionally went home after working with PT and OT in which she was feeling much better however he continued to hav
--- NOTE | 2024-03-09 16:03 | PM.IMPN ---
Progress Note: A&P Assessment and Plan (1) Physical deconditioning: Code(s): R53.81 - Other malaise Status: Acute Assessment and Plan: 03/06/24: Patient was recently seen and discharged previously with similar complaints and seen PT and OT in which at that time he felt strong enough to go home. He was discharged home and then sustained another fall. History of multiple falls PT and OT ordered Case coordination following for outpatient rehab needs 03/07/24: no change 03/08/24: No change to current treatment plan Awaiting authorization for [facility] 03/09/24: No change to current treatment plan Still awaiting authorization for [facility] (2) Frequent falls: Code(s): R29.6 - Repeated falls Status: Acute Assessment and Plan: See above plan of care (3) Hyperkalemia: Code(s): E87.5 - Hyperkalemia Status: Acute Assessment and Plan: 03/06/24: Initial potassium 5.2 Will recheck labs today 03/07/24: BMP PENDING, patient currently refusing lab draw 03/08/24: Patient refusing lab draws however his potassium did come back down on labs on the 03/09/24: No change (4) Chronic kidney disease, stage 3: Code(s): N18.30 - Chronic kidney disease, stage 3 unspecified Status: Acute Assessment and Plan: 03/06/24: Patient appears to be at his baseline creatinine of 1.5 Continue to trend 03/07/24: BMP PENDING, patient currently refusing lab draw 03/08/24: No change to current treatment plan (5) Abnormal urinalysis: Code(s): R82.90 - Unspecified abnormal findings in urine Status: Resolved Assessment and Plan: 03/06/24: UA showed 2+ urine glucose, 2+ leukocyte, 11-20 urine WBC. 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 Status: Chronic Assessment and Plan: 03/06/24: Blood sugars ranging 243-313 Hemoglobin A1c 8.9 Accu-Cheks AC and HS Moderate dose sliding scale insulin ordered Lantus 25 units subQ at bedtime Hypoglycemic protocol in place Patient changed from regular diet to diabetic diet today 03/07/24: Blood sugars ranging 243-313 Hemoglobin A1c 8.9 Accu-Cheks AC and HS Moderate dose sliding scale insulin ordered Lantus 25 units subQ at bedtime Hypoglycemic protocol in place 03/08/24: Patient refusing Accu-Cheks 03/09/24: No change to current treatment plan (7) Hypothyroidism: Code(s): E03.9 - Hypothyroidism, unspecified Status: Chronic Assessment and Plan: 03/06/24: Continue Synthroid 03/08/24: No change to current treatment plan Time Spent With Patient Time with patient: 25 - 35 minutes Subjective Date/time seen: 03/09/24 16:03 Interval history: Interval history: This is an 89-year-old male who presented to the hospital on 03/05/2024 for evaluation after a fall. He was admitted to the hospital about 10 days ago and was found to have L3 compression fracture following fall and was recommended to wear an LSO brace. He regionally went home after working with PT and OT in which she was feeling much better however he continued to have falls and weakness bringing him back for evaluation. Workup in the hospital included a chest x-ray which showed mild haziness in the left lung base. Initial labs showed a white blood cell count of 10.6, hemoglobin 13 point, sodium 135, potassium 5.2, chloride 97, creatinine 1, EGFR 44, blood sugars ranging 243-313, hemoglobin A1c 8.9. UA was obtained which showed 2+ urine glucose, 2+ leukocytes, 11-20 urine WBC. Urine culture was obtained and is pending. EKG shown sinus rhythm with right bundle branch block with a rate of 67, QTC 433. While in
[2024-03-10 04:00] VITALS: BP 133/99; PULSE 64; RESP 18; TEMP 36.6; O2SAT 97
[2024-03-10] MEDS: LEVOTHYROXINE SODIUM 25 MCG TABLET PO (05:24)
[2024-03-10 08:00] VITALS: BP 104/56; PULSE 88; RESP 18; TEMP 36.1; O2SAT 100
[2024-03-10 08:03] VITALS: BP 90/49; PULSE 70; O2SAT 100
[2024-03-10] MEDS: ASPIRIN 325 MG TABLET PO (09:38)
[2024-03-10] MEDS: MIDODRINE HCL 2.5 MG TABLET 5 MG PO (09:38)
[2024-03-10] MEDS: OMEGA 3 POLYUNSAT FATTY ACIDS 1 GM CAP 2 GM PO (09:39)
[2024-03-10] MEDS: MULTIVITAMINS /C LUTEIN (CENTRUM SILVER) TABLET *BKC 1 TAB PO (09:39)
--- NOTE | 2024-03-10 10:05 | PC.NURSE ---
Patient refused AM blood sugar checks. Emily from [facility] was notified. Educated patient on importance of controlling blood sugars and managment of diabetes. Patient continued to refuse blood sugar check. Patient stated that the food is horrible here and doesn't care if his blood sugar is high, I just want to go home .
[2024-03-10 12:00] VITALS: BP 116/55; PULSE 65; RESP 18; TEMP 36.5; O2SAT 100
--- NOTE | 2024-03-10 12:56 | PM.DS ---
DS: Admitting Diagnosis Discharge Date 03/10/24 Admitting Diagnosis Frequent falls Hyperkalemia Chronic kidney disease stage very Abnormal urinalysis Insulin-dependent type 2 diabetes mellitus Hypothyroidism DS: Discharge Diagnosis Discharge Diagnosis (1) Physical deconditioning: Code(s): R53.81 - Other malaise Status: Acute (2) Frequent falls: Code(s): R29.6 - Repeated falls Status: Acute (3) Hyperkalemia: Code(s): E87.5 - Hyperkalemia Status: Acute (4) Chronic kidney disease, stage 3: Code(s): N18.30 - Chronic kidney disease, stage 3 unspecified Status: Acute (5) Abnormal urinalysis: Code(s): R82.90 - Unspecified abnormal findings in urine Status: Resolved (6) Insulin dependent type 2 diabetes mellitus: Code(s): E11.9 - Type 2 diabetes mellitus without complications; Z79.4 - residential (current) use of insulin Status: Chronic (7) Hypothyroidism: Code(s): E03.9 - Hypothyroidism, unspecified Status: Chronic DS: Summary Hospital Course Reason for hospitalization: Frequent falls Hyperkalemia Chronic kidney disease stage very Abnormal urinalysis Insulin-dependent type 2 diabetes mellitus Hypothyroidism Hospital Course: This is an 89-year-old male who presented to the hospital on 03/05/2024 for evaluation after a fall. He was admitted to the hospital about 10 days ago and was found to have L3 compression fracture following fall and was recommended to wear an LSO brace. He regionally went home after working with PT and OT in which she was feeling much better however he continued to have falls and weakness bringing him back for evaluation. Workup in the hospital included a chest x-ray which showed mild haziness in the left lung base. Initial labs showed a white blood cell count of 10.6, hemoglobin 13 point, sodium 135, potassium 5.2, chloride 97, creatinine 1, EGFR 44, blood sugars ranging 243-313, hemoglobin A1c 8.9. UA was obtained which showed 2+ urine glucose, 2+ leukocytes, 11-20 urine WBC. Urine culture was obtained and is pending. EKG shown sinus rhythm with right bundle branch block with a rate of 67, QTC 433. While in the ED patient received Lovenox and 1 L of IV fluids. PT and OT were ordered to evaluate treat today. Case coordination followed for outpatient needs. He was approved to go to the [facility] today for his physical deconditioning. He is stable for discharge at this time. He will need to follow up with his primary care physician within 1 week. Final diagnosis: Physical deconditioning, frequent falls, hyperkalemia Status at Discharge Cognitive/behavioral status at discharge: Alert oriented x3 Functional status at discharge: uses cane/walker Overall status at discharge: patient is progressing back to baseline Time Spent with Patient Time attestation: Total time spent providing and/or coordinating discharge services: Time spent: Greater than 30 minutes Exam Narrative: General: In no acute distress, well nourished Cardiac: Normal S1 and S2. RRR, No murmur, gallops or friction rubs, peripheral pulses intact. Respiratory: Lungs clear to auscultation, no adventitious lung sounds, currently on room air Gastrointestinal: soft, non-distended, non-tender, normoactive bowel sounds. : voiding without difficulty. Extremities: moves all extremities well, no edema Neuro: Alert and oriented x4 DS: Data Data Completed and Pending Completed studies during hospitalization: Chest x-ray Lumbar spine x-ray Thoracic spine x-ray Labs on day of discharge: Labs from last 24 hours 03/10/24 12:21 SARS-CoV-2 RNA (RT-PCR) Pending Discharge Plan Discharge Attending physician on discharge: Brii Smith Consulting providers: Emily Berger Discharging Clinician: Emily Berger Anticipated Discharge Date/Time: 03/10/24 12:54 Patient Disposition: SNF Activity: as tolerated Diet: as oliver
[2024-03-10 13:10] LABS: SARS-CoV-2 RNA PCR Negative (Negative)
== END 2024-03-10 15:25 ==
LOC: ANHED 18:08 → ANH3MEDSUR 19:09
PROVIDERS: Nurse Practitioner; Physician Assistant; Admitting Provider Internal Medicine; Emergency Provider Family Medicine; Visit Provider Nurse Practitioner Acute Care
DX: R53.81 Other malaise (principal); R29.6 Repeated falls; E87.5 Hyperkalemia; R82.90 Unspecified abnormal findings in urine; S32.030D Wedge compression fracture of third lumbar vertebra, subsequent encounter for fracture with routine healing; W01.0XXD Fall on same level from slipping, tripping and stumbling without subsequent striking against object, subsequent encounter; Z91.81 History of falling; I25.10 Atherosclerotic heart disease of native coronary artery without angina pectoris; E11.22 Type 2 diabetes mellitus with diabetic chronic kidney disease; N18.30 Chronic kidney disease, stage 3 unspecified; E11.42 Type 2 diabetes mellitus with diabetic polyneuropathy; E03.9 Hypothyroidism, unspecified; Z79.4 Long term (current) use of insulin; Z79.82 Long term (current) use of aspirin; Z11.52 Encounter for screening for COVID-19
CPT/HCPCS: 36415; 71045; 72070; 72100; 80048; 80053; 81001; 82948; 83036; 83735; 85025; 85027; 85610; 87086; 87635; 93005; 97110; 97161; 97165; 97530; 97535; 99285; A9270; G0378; J1815; J7030